=== PATIENT | female | born 2000 | race Caucasian/White ===

== ENCOUNTER 2022-09-27 21:45 | Day surgery (SDC) | payer OTHER ==
[2022-09-27 22:17] VITALS: BMI 41.8
[2022-09-27] MEDS ORDERED: hydrALAZINE 20 MG/ML VIAL SLOW IVP PRN (23:08)
[2022-09-28 00:26] LABS: ALT (SGPT) 53 U/L (8-55); AST (SGOT) 21 U/L (5-34); Albumin 3.3 g/dL (3.5-5.0); Alkaline Phosphatase 232 U/L (40-100); Anion Gap 14 mmol/L (10-20); BUN (Urea Nitrogen) 14 mg/dL (7.0-18.7); Bilirubin, Total 0.4 mg/dL (0.2-1.2); Calc. Creatinine Clearance 247 mL/min (70-130); Carbon Dioxide 18 mmol/L (22-29); Chloride 107 mmol/L (98-107); Estimated GFR 111; Globulin 2.8 g/dL (2.4-3.5); Glucose 92 mg/dL (70-105); Protein, Total 6.1 g/dL (6.0-8.3); Sodium 135 mmol/L (136-145)
[2022-09-28 00:36] LABS: #Eosinphils 0.1 10x3/uL (0.0-0.5); #Monocytes 0.8 10x3/uL (0.0-1.1); #Neutrophils 6.4 10x3/uL (1.5-8.4); %Basophils 0.2 % (0.0-2.0); %Eosinophils 0.9 % (0.0-6.0); %Lymphocytes 20.3 % (18.0-47.0); %Monocytes 8.3 % (0.0-10.0); %Neutrophils 69.9 % (40.0-75.0); Hemoglobin 11.9 g/dL (12.0-15.5); Mean Corpuscular HGB CONC 32.6 g/dL (32.0-36.0); Mean Corpuscular Hemoglobin 23.9 pg (27.0-33.0); Mean Corpuscular Volume 73.3 fl (81.6-98.3); Mean Platelet Volume 11.4 fl (7.4-10.4); Platelet Count 223 10x3/uL (150-450); RBC Distribution Width 21.2 % (11.5-14.5); Red Blood Cell (RBC) Count 4.98 10x6/uL (3.90-5.03); White Blood Cell (WBC) Count 9.2 10x3/uL (3.5-10.5)
[2022-09-28 01:00] LABS: Creatinine, Urine 151.41 mg/dL (47-110)
== END 2022-09-28 01:35 | disposition home or self-care (01) ==
LOC: CSHLD/OP 21:45
PROVIDERS: ATTEND Family Medicine
DX: O47.1 False labor at or after 37 completed weeks of gestation (principal); O24.410 Gestational diabetes mellitus in pregnancy, diet controlled; O99.213 Obesity complicating pregnancy, third trimester; E66.9 Obesity, unspecified; O99.013 Anemia complicating pregnancy, third trimester; D64.9 Anemia, unspecified; O13.3 Gestational [pregnancy-induced] hypertension without significant proteinuria, third trimester; Z79.899 Other long term (current) drug therapy; Z3A.38 38 weeks gestation of pregnancy
CPT/HCPCS: 36415; 80053; 82570; 84156; 85025; 99284

== ENCOUNTER 2022-09-29 18:00 | Inpatient (IN) | payer OTHER ==
[~2022-09-29 18:00] MED LIST: Bupivacaine 0.25% HCL 30 ML VIAL ONE
[2022-09-29 19:00] VITALS: BMI 41.4
[2022-09-29] MEDS ORDERED: Penicillin G Potassium 5 MILL.UNITS in Sodium Chloride 0.9% 100 ML IVPB SCH (19:00)
[2022-09-29] MEDS ORDERED: Lidocaine 1% (PF) 30 ML VIAL SC PRN (19:00)
[2022-09-29] MEDS ORDERED: Ondansetron PF 4 MG/2 ML Vial IVP PRN (19:00)
[2022-09-29] MEDS ORDERED: NS w/ Oxytocin 30 units 500 ML IV SCH ×3 (19:00)
[2022-09-29] MEDS ORDERED: Misoprostol 200 MCG TAB PR PRN (19:00)
[2022-09-29] MEDS ORDERED: hydrALAZINE 20 MG/ML VIAL SLOW IVP PRN (19:00)
[2022-09-29] MEDS ORDERED: Diphenoxylate HCl/Atropine Tablet PO PRN (19:00)
[2022-09-29] MEDS ORDERED: Penicillin G 2.5 MILL.units 2.5 MILL.UNITS in Premix Bag 1 BAG IVPB SCH (19:00)
[2022-09-29] MEDS ORDERED: Carboprost 250 MCG/ML AMP IM PRN (19:00)
[2022-09-29] MEDS ORDERED: Ibuprofen 800 MG TAB PO PRN (19:00)
[2022-09-29] MEDS ORDERED: Tranexamic Acid 1,000 MG/10 ML VIAL IVP PRN (19:00)
[2022-09-29] MEDS ORDERED: HYDROcodone/Acetaminophen 5/325 mg Tablet PO PRN (19:00)
[2022-09-29] MEDS ORDERED: Acetaminophen 500 MG TAB PO PRN (19:00)
[2022-09-29] MEDS ORDERED: Methylergonovine 0.2 MG/ML VIAL IM PRN (19:00)
[2022-09-29] MEDS ORDERED: Fentanyl 100 MCG/2 ML VIAL SLOW IVP PRN (19:00)
[2022-09-29] MEDS ORDERED: Promethazine HCl 25 MG/ML VIAL IM PRN (19:00)
[2022-09-29 19:38] LABS: Mean Corpuscular HGB CONC 33.1 g/dL (32.0-36.0); Mean Corpuscular Volume 72.7 fl (81.6-98.3); Mean Platelet Volume 10.7 fl (7.4-10.4); Platelet Count 196 10x3/uL (150-450); RBC Distribution Width 21.2 % (11.5-14.5); Red Blood Cell (RBC) Count 4.99 10x6/uL (3.90-5.03)
[2022-09-29 19:50] LABS: Glucose 111 mg/dL (70-105)
[2022-09-29 22:04] LABS: Syphilis Antibody Nonreactive (Nonreactive); Syphilis Antibody Index 0.03 S/CO (<1.00 Non-Reactive)
[2022-09-29 22:05] LABS: HBSAg Index 0.13 S/CO (0-0.99); Hep B Surf Ag - L&D Non-Reactive S/CO (NonReactive)
[2022-09-30] MEDS ORDERED: Fentanyl 2 mcg/Bup 0.1% Cadd 100 ML ONE (08:41)
[2022-09-30] MEDS: Lactated Ringer's 1,000 ML IV SCH ×3 (09:00→15:57)
[2022-09-30] MEDS ORDERED: Acetaminophen 325 MG TAB PO PRN (09:49)
[2022-09-30] MEDS ORDERED: Ondansetron PF 4 MG/2 ML Vial IVP PRN ×2 (09:49→14:53)
[2022-09-30] MEDS ORDERED: Moisturizing Cream (Eucerin) 113 GM JAR TOP PRN (09:49)
[2022-09-30] MEDS ORDERED: Promethazine HCl 25 MG/ML VIAL IM PRN ×2 (09:49→14:53)
[2022-09-30] MEDS ORDERED: Naloxone HCl 0.4 mg/ml Vial IVP PRN ×2 (09:49)
[2022-09-30] MEDS ORDERED: ePHEDrine Sulfate 50 MG/10 ML VIAL SLOW IVP PRN (09:49)
[2022-09-30] MEDS ORDERED: Lactated Ringer's 500 ML IV PRN (09:49)
[2022-09-30] MEDS ORDERED: diphenhydrAMINE 50 MG/ML VIAL IVP PRN (09:49)
[2022-09-30] MEDS ORDERED: Communication Order-Pharmacy FS SCH (10:00)
[2022-09-30] MEDS ORDERED: Fentanyl 2 mcg/Bupivacaine 0.1% Cassette 100 ML EPIDURAL SCH (10:00)
[2022-09-30] MEDS ORDERED: Benzocaine-Menthol 82.5 ML CAN TOP PRN (14:53)
[2022-09-30] MEDS ORDERED: hydrALAZINE 20 MG/ML VIAL SLOW IVP PRN (14:53)
[2022-09-30] MEDS ORDERED: HYDROcodone/Acetaminophen 5/325 mg Tablet PO PRN ×2 (14:53)
[2022-09-30] MEDS ORDERED: diphenhydrAMINE 25 MG CAP PO PRN (14:53)
[2022-09-30] MEDS ORDERED: Milk Of Magnesia 30 ML UDCUP PO PRN (14:53)
[2022-09-30] MEDS ORDERED: Bisacodyl 10 MG SUPP PR PRN (14:53)
[2022-09-30] MEDS ORDERED: Lanolin Ointment 7 GM TUBE TOP PRN (14:53)
[2022-09-30] MEDS ORDERED: Boostrix 0.5 ML (Tdap) VIAL (>/=7 yrs of age) IM ONE (14:53)
[2022-09-30] MEDS: Misoprostol 100 MCG TAB VAG SCH ×2 (15:55→15:56)
[2022-09-30] MEDS: Ferrous Sulfate 325 MG TAB PO SCH (16:12)
[2022-09-30] MEDS ORDERED: cloNIDine 0.1 MG TAB PO PRN (18:36)
[2022-09-30] MEDS: Ibuprofen 800 MG TAB PO SCH (21:57)
[2022-09-30] MEDS: Docusate 100 MG CAP PO SCH (21:59)
[2022-10-01] MEDS: Docusate 100 MG CAP PO SCH ×2 (08:10→22:16)
[2022-10-01] MEDS: Prenatal Vitamin 1 TAB PO SCH (08:11)
[2022-10-01] MEDS: Ibuprofen 800 MG TAB PO SCH ×3 (08:13→22:16)
[2022-10-01] MEDS: Ferrous Sulfate 325 MG TAB PO SCH ×2 (08:14→15:30)
[2022-10-02] MEDS: Ibuprofen 800 MG TAB PO SCH ×2 (05:52→14:14)
[2022-10-02 07:53] VITALS: BP 117/64; TEMP 97.9
[2022-10-02] MEDS: Prenatal Vitamin 1 TAB PO SCH (08:55)
[2022-10-02] MEDS: Docusate 100 MG CAP PO SCH (08:55)
[2022-10-02] MEDS: Ferrous Sulfate 325 MG TAB PO SCH (08:57)
== END 2022-10-02 17:55 | disposition home or self-care (01) | DRG 807 ==
LOC: CSHLD 18:32 → CSHPP 09-30 15:50
PROVIDERS: ADMIT Family Medicine; ATTEND Family Medicine
PROC: 10E0XZZ Delivery of Products of Conception, External Approach (ICD-10-PCS; principal; 2022-09-30)
PROC: 10907ZC Drainage of Amniotic Fluid, Therapeutic from Products of Conception, Via Natural or Artificial Opening (ICD-10-PCS; 2022-09-30)
PROC: 3E033VJ Introduction of Other Hormone into Peripheral Vein, Percutaneous Approach (ICD-10-PCS; 2022-09-30)
PROC: 0UQMXZZ Repair Vulva, External Approach (ICD-10-PCS; 2022-09-30)
DX: O24.420 Gestational diabetes mellitus in childbirth, diet controlled (principal); Z37.0 Single live birth; Z3A.39 39 weeks gestation of pregnancy; O99.214 Obesity complicating childbirth; E66.9 Obesity, unspecified; O70.0 First degree perineal laceration during delivery
CPT/HCPCS: 36416; 51702; 82947; 85027; 86780; 86850; 86900; 86901; 87340; J2001; J2590; J7120; S0020